=== PATIENT | male | born 1930 | race Caucasian/White ===

== ENCOUNTER → 2017-10-18 12:36 | Outpatient (CLI) | payer MEDICARE ==
[2017-10-18 14:25] LABS: ANION GAP 14.1 mmol/L (8-16); CALCIUM 8.1 mg/dL (8.5-10.1); CARBON DIOXIDE 26.3 mmol/L (21.0-32.0); CREATININE - SERUM 1.3 mg/dL (0.6-1.3); POTASSIUM - SERUM 3.4 mmol/L (3.5-5.1)
== END | disposition home or self-care (01) ==
LOC: D.LABREF 12:36
PROVIDERS: Internal Medicine
DX: I50.32 Chronic diastolic (congestive) heart failure (principal); I10 Essential (primary) hypertension; I49.9 Cardiac arrhythmia, unspecified; C34.92 Malignant neoplasm of unspecified part of left bronchus or lung